=== PATIENT | female | born 1990 | race Caucasian/White ===

== ENCOUNTER 2016-10-25 02:07 | Emergency (ER) | payer SELFPAY ==
[~2016-10-25] VITALS: Ht 167.6 cm; Wt 108.1 kg
[2016-10-25 03:25] LABS: BASOPHIL % 0.4 % (0-2); PLATELET COUNT 256 x10^3mcL (130-400); RED CELL DISTRIBUTION WIDTH 13.4 % (11.5-14.5)
[2016-10-25 03:36] LABS: CALCIUM 8.6 mg/dL (8.5-10.1); CHLORIDE SERUM 105 mmol/L (98-107); GFR1 > 60 mL/min; GLUCOSE SERUM 97 mg/dL (74-106); POTASSIUM SERUM 4.2 mmol/L (3.5-5.1); SODIUM SERUM 142 mmol/L (136-145)
[2016-10-25 03:41] LABS: ALBUMIN 3.5 g/dL (3.4-5.0); ALKALINE PHOSPHATASE 75 U/L (46-116); ALT/SGPT 22 U/L (14-59); AST/SGOT 14 U/L (15-37); BILIRUBIN TOTAL 0.23 mg/dL (0.20-1.00); LIPASE 114 IU/L (73-393); TOTAL PROTEIN, SERUM 7.6 g/dL (6.4-8.2)
[2016-10-25 04:08] VITALS: BP 125/65
== END 2016-10-25 04:08 | disposition home or self-care (01) ==
LOC: ED 02:07
PROVIDERS: Emergency Medicine
DX: O26.891 Other specified pregnancy related conditions, first trimester (principal); N89.8 Other specified noninflammatory disorders of vagina; O99.211 Obesity complicating pregnancy, first trimester; J45.909 Unspecified asthma, uncomplicated; Z79.899 Other long term (current) drug therapy; Z3A.01 Less than 8 weeks gestation of pregnancy
CPT/HCPCS: 36415; J1885

== ENCOUNTER 2016-12-18 09:09 | Emergency (ER) | payer MEDICAID ==
[2016-12-18 10:13] LABS: CALCIUM 8.7 mg/dL (8.5-10.1); CARBON DIOXIDE 28.3 mmol/L (21-32); CHLORIDE SERUM 105 mmol/L (98-107); CREATININE SERUM 0.7 mg/dL (0.6-1.0); GFR1 > 60 mL/min; GLUCOSE SERUM 101 mg/dL (74-106); POTASSIUM SERUM 4.2 mmol/L (3.5-5.1); SODIUM SERUM 140 mmol/L (136-145)
[2016-12-18 10:18] LABS: ALBUMIN 3.8 g/dL (3.4-5.0); ALKALINE PHOSPHATASE 75 U/L (46-116); ALT/SGPT 24 U/L (14-59); AST/SGOT 15 U/L (15-37); LIPASE 294 IU/L (73-393); TOTAL PROTEIN, SERUM 7.9 g/dL (6.4-8.2)
[2016-12-18 10:36] LABS: BASOPHIL % 0.4 % (0-2); PLATELET COUNT 247 x10^3mcL (130-400); RED CELL DISTRIBUTION WIDTH 13.6 % (11.5-14.5)
[2016-12-18 13:12] VITALS: BP 112/71
== END 2016-12-18 13:12 | disposition home or self-care (01) ==
LOC: ED 09:09
PROVIDERS: Emergency Medicine
DX: R10.11 Right upper quadrant pain (principal); R03.0 Elevated blood-pressure reading, without diagnosis of hypertension; Z90.49 Acquired absence of other specified parts of digestive tract; Z88.5 Allergy status to narcotic agent
CPT/HCPCS: J1885; J2405; J3010; J7030; Q0162

== ENCOUNTER 2017-12-07 15:44 | Emergency (ER) | payer SELFPAY ==
[~2017-12-07] VITALS: Ht 165.1 cm; Wt 98.0 kg
[2017-12-07 15:55] VITALS: Ht 165.1 cm; Wt 98.0 kg
[2017-12-07 18:04] VITALS: BP 133/84
== END 2017-12-07 18:04 | disposition home or self-care (01) ==
LOC: ED 15:44
DX: S30.0XXA Contusion of lower back and pelvis, initial encounter (principal); M25.512 Pain in left shoulder; V98.8XXA Other specified transport accidents, initial encounter; Y93.I9 Activity, other involving external motion; Y92.89 Other specified places as the place of occurrence of the external cause; Y99.8 Other external cause status; Z88.5 Allergy status to narcotic agent; Z90.89 Acquired absence of other organs
CPT/HCPCS: J7030

== ENCOUNTER 2018-01-06 22:22 | Emergency (ER) | payer SELFPAY ==
[2018-01-06 23:17] LABS: CALCIUM 8.9 mg/dL (8.5-10.1); CARBON DIOXIDE 25.8 mmol/L (21-32); CHLORIDE SERUM 103 mmol/L (98-107); CREATININE SERUM 0.9 mg/dL (0.6-1.0); GFR1 > 60 mL/min; GLUCOSE SERUM 96 mg/dL (74-106); POTASSIUM SERUM 3.7 mmol/L (3.5-5.1); SODIUM SERUM 136 mmol/L (136-145)
[2018-01-06 23:22] LABS: ALBUMIN 3.6 g/dL (3.4-5.0); ALKALINE PHOSPHATASE 66 U/L (46-116); ALT/SGPT 26 U/L (14-59); AST/SGOT 20 U/L (15-37); BILIRUBIN TOTAL 0.84 mg/dL (0.20-1.00); LIPASE 165 IU/L (73-393); TOTAL PROTEIN, SERUM 7.7 g/dL (6.4-8.2)
[2018-01-06 23:45] LABS: BASOPHIL % 0.5 % (0-2); PLATELET COUNT 222 x10^3mcL (130-400); RED CELL DISTRIBUTION WIDTH 13.5 % (11.5-14.5)
[2018-01-07 00:35] VITALS: BP 124/70
== END 2018-01-07 00:35 | disposition home or self-care (01) ==
LOC: ED 22:22
PROVIDERS: Emergency Medicine
DX: K29.50 Unspecified chronic gastritis without bleeding (principal); Z90.49 Acquired absence of other specified parts of digestive tract
CPT/HCPCS: 36415; Q0162

== ENCOUNTER 2018-02-06 19:58 | Emergency (ER) | payer SELFPAY ==
[~2018-02-06] VITALS: Ht 162.6 cm; Wt 93.9 kg
[2018-02-06 20:04] VITALS: Ht 162.6 cm; Wt 93.9 kg
[2018-02-06 20:56] LABS: BASOPHIL % 0.5 % (0-2); PLATELET COUNT 284 x10^3mcL (130-400); RED CELL DISTRIBUTION WIDTH 13.3 % (11.5-14.5)
[2018-02-06 21:03] LABS: CALCIUM 8.3 mg/dL (8.5-10.1); CARBON DIOXIDE 26.4 mmol/L (21-32); CHLORIDE SERUM 107 mmol/L (98-107); CREATININE SERUM 0.7 mg/dL (0.6-1.0); GFR1 > 60 mL/min; GLUCOSE SERUM 89 mg/dL (74-106); SODIUM SERUM 141 mmol/L (136-145)
[2018-02-06 21:07] LABS: ALBUMIN 3.7 g/dL (3.4-5.0); ALKALINE PHOSPHATASE 82 U/L (46-116); ALT/SGPT 30 U/L (14-59); AST/SGOT 33 U/L (15-37); BILIRUBIN TOTAL 0.59 mg/dL (0.20-1.00)
[2018-02-06 21:41] LABS: AMPHETAMINE QUAL UR POSITIVE (See below)
[2018-02-06 22:26] VITALS: BP 112/69
== END 2018-02-06 22:26 | disposition home or self-care (01) ==
LOC: ED 19:58
PROVIDERS: Emergency Medicine
DX: F41.9 Anxiety disorder, unspecified (principal); F19.10 Other psychoactive substance abuse, uncomplicated; Z90.49 Acquired absence of other specified parts of digestive tract; Z98.890 Other specified postprocedural states; Z88.5 Allergy status to narcotic agent
CPT/HCPCS: 83880; G0480; J2060; J7030

== ENCOUNTER 2018-03-29 20:01 | Emergency (ER) | payer SELFPAY ==
[~2018-03-29] VITALS: Ht 172.7 cm; Wt 99.3 kg
[2018-03-29 20:05] VITALS: Ht 172.7 cm; Wt 99.3 kg
[2018-03-29 21:46] VITALS: BP 127/79
== END 2018-03-29 21:46 | disposition home or self-care (01) ==
LOC: ED 20:01
DX: J02.9 Acute pharyngitis, unspecified (principal); Z98.890 Other specified postprocedural states; Z90.89 Acquired absence of other organs; Z88.5 Allergy status to narcotic agent
CPT/HCPCS: J1100

== ENCOUNTER 2018-05-05 17:21 | Emergency (ER) | payer SELFPAY ==
[~2018-05-05] VITALS: Ht 165.1 cm; Wt 97.5 kg
[2018-05-05 17:22] VITALS: BP 125/58; Ht 165.1 cm; Wt 97.5 kg
== END 2018-05-05 18:29 | disposition home or self-care (01) ==
LOC: ED 17:21
DX: S80.212A Abrasion, left knee, initial encounter (principal); S09.8XXA Other specified injuries of head, initial encounter; Z90.49 Acquired absence of other specified parts of digestive tract; Z98.890 Other specified postprocedural states; Z88.5 Allergy status to narcotic agent; W01.0XXA Fall on same level from slipping, tripping and stumbling without subsequent striking against object, initial encounter; Y93.01 Activity, walking, marching and hiking; Y92.89 Other specified places as the place of occurrence of the external cause; Y99.8 Other external cause status

== ENCOUNTER 2018-05-25 13:22 | Emergency (ER) | payer SELFPAY ==
[~2018-05-25] VITALS: Ht 165.1 cm; Wt 99.8 kg
[2018-05-25 14:07] VITALS: Ht 165.1 cm; Wt 99.8 kg
[2018-05-25 14:44] LABS: BASOPHIL % 0.4 % (0-2); PLATELET COUNT 242 x10^3mcL (130-400); RED CELL DISTRIBUTION WIDTH 13.1 % (11.5-14.5)
[2018-05-25 14:58] LABS: CARBON DIOXIDE 27.5 mmol/L (21-32); CHLORIDE SERUM 104 mmol/L (98-107); CREATININE SERUM 0.9 mg/dL (0.6-1.0); GFR1 > 60 mL/min; GLUCOSE SERUM 89 mg/dL (74-106); POTASSIUM SERUM 4.3 mmol/L (3.5-5.1); SODIUM SERUM 139 mmol/L (136-145)
[2018-05-25 15:02] LABS: ALBUMIN 3.4 g/dL (3.4-5.0); ALKALINE PHOSPHATASE 79 U/L (46-116); ALT/SGPT 21 U/L (14-59); AST/SGOT 19 U/L (15-37); BILIRUBIN TOTAL 0.3 mg/dL (0.20-1.00); TOTAL PROTEIN, SERUM 7.6 g/dL (6.4-8.2)
[2018-05-25 17:54] VITALS: BP 116/60
== END 2018-05-25 17:54 | disposition home or self-care (01) ==
LOC: ED 13:22
PROVIDERS: Emergency Medicine
DX: S43.401A Unspecified sprain of right shoulder joint, initial encounter (principal); S83.92XA Sprain of unspecified site of left knee, initial encounter; R07.89 Other chest pain; Z90.49 Acquired absence of other specified parts of digestive tract; Z98.890 Other specified postprocedural states; Z88.5 Allergy status to narcotic agent; V49.59XA Passenger injured in collision with other motor vehicles in traffic accident, initial encounter; Y93.I9 Activity, other involving external motion; Y92.413 State road as the place of occurrence of the external cause; Y99.8 Other external cause status
CPT/HCPCS: 36415

== ENCOUNTER 2018-06-08 01:27 | Emergency (ER) | payer SELFPAY ==
[~2018-06-08] VITALS: Ht 165.1 cm; Wt 101.6 kg
[2018-06-08 01:36] VITALS: Ht 165.1 cm; Wt 101.6 kg
[2018-06-08 02:39] VITALS: BP 119/75
== END 2018-06-08 02:39 | disposition home or self-care (01) ==
LOC: ED 01:27
DX: L50.0 Allergic urticaria (principal); F17.210 Nicotine dependence, cigarettes, uncomplicated; Z98.890 Other specified postprocedural states; Z90.49 Acquired absence of other specified parts of digestive tract; Z88.5 Allergy status to narcotic agent
CPT/HCPCS: J1200; J7512

== ENCOUNTER 2018-11-26 06:08 | Emergency (ER) | payer SELFPAY ==
[~2018-11-26] VITALS: Ht 167.6 cm; Wt 97.5 kg
[2018-11-26 06:15] VITALS: Ht 167.6 cm; Wt 97.5 kg
[2018-11-26 07:20] LABS: CARBON DIOXIDE 22.7 mmol/L (21-32); CHLORIDE SERUM 106 mmol/L (98-107); CREATININE SERUM 0.7 mg/dL (0.6-1.0); GFR1 > 60 mL/min; GLUCOSE SERUM 89 mg/dL (74-106); POTASSIUM SERUM 3.9 mmol/L (3.5-5.1); SODIUM SERUM 141 mmol/L (136-145)
[2018-11-26 07:26] LABS: ALBUMIN 3.4 g/dL (3.4-5.0); ALKALINE PHOSPHATASE 59 U/L (46-116); ALT/SGPT 21 U/L (14-59); AMYLASE 36 U/L (25-115); AST/SGOT 18 U/L (15-37); BILIRUBIN TOTAL 0.8 mg/dL (0.20-1.00); LIPASE 84 IU/L (73-393); TOTAL PROTEIN, SERUM 6.9 g/dL (6.4-8.2)
[2018-11-26 07:44] LABS: BASOPHIL % 0.3 % (0-2); PLATELET COUNT 209 x10^3mcL (130-400); RED CELL DISTRIBUTION WIDTH 12.6 % (11.5-14.5)
[2018-11-26 07:56] LABS: UA SPECIFIC GRAVITY >=1.030 (1.005-1.035); microscopic required? YES; urine erythrocyte TRACE (NEGATIVE)
[2018-11-26 08:25] LABS: AMPHETAMINE QUAL UR NONE DETECTED (See below)
[2018-11-26 09:04] VITALS: BP 119/75
== END 2018-11-26 09:04 | disposition home or self-care (01) ==
LOC: ED 06:08
PROVIDERS: Emergency Medicine
DX: M51.26 Other intervertebral disc displacement, lumbar region (principal); F12.90 Cannabis use, unspecified, uncomplicated
CPT/HCPCS: J1885

== ENCOUNTER 2019-01-27 14:16 | Emergency (ER) | payer SELFPAY ==
[~2019-01-27] VITALS: Ht 165.1 cm; Wt 98.0 kg
[2019-01-27 14:19] VITALS: Ht 165.1 cm; Wt 98.0 kg
[2019-01-27 16:58] LABS: BASOPHIL % 0.4 % (0-2); PLATELET COUNT 272 x10^3mcL (130-400)
[2019-01-27 17:06] LABS: CALCIUM 8.3 mg/dL (8.5-10.1); CARBON DIOXIDE 27.2 mmol/L (21-32); CHLORIDE SERUM 105 mmol/L (98-107); CREATININE SERUM 0.7 mg/dL (0.6-1.0); GFR1 > 60 mL/min; GLUCOSE SERUM 98 mg/dL (74-106); POTASSIUM SERUM 4.2 mmol/L (3.5-5.1); SODIUM SERUM 140 mmol/L (136-145)
[2019-01-27 17:10] LABS: ALBUMIN 3.6 g/dL (3.4-5.0); ALKALINE PHOSPHATASE 76 U/L (46-116); ALT/SGPT 17 U/L (14-59); AST/SGOT 15 U/L (15-37); BILIRUBIN TOTAL 0.44 mg/dL (0.20-1.00); TOTAL PROTEIN, SERUM 7.6 g/dL (6.4-8.2)
[2019-01-27 19:47] VITALS: BP 102/48
== END 2019-01-27 19:47 | disposition home or self-care (01) ==
LOC: ED 14:16
PROVIDERS: Emergency Medicine
DX: G43.909 Migraine, unspecified, not intractable, without status migrainosus (principal); R10.84 Generalized abdominal pain; R55 Syncope and collapse; Z98.890 Other specified postprocedural states; Z90.49 Acquired absence of other specified parts of digestive tract
CPT/HCPCS: J1200; J2765; J7030

== ENCOUNTER 2019-03-21 11:45 | Emergency (ER) | payer SELFPAY ==
[~2019-03-21] VITALS: Ht 165.1 cm; Wt 96.2 kg
[2019-03-21 11:57] VITALS: Ht 165.1 cm; Wt 96.2 kg
[2019-03-21 12:50] VITALS: BP 121/79
== END 2019-03-21 12:50 | disposition home or self-care (01) ==
LOC: ED 11:45
DX: B02.9 Zoster without complications (principal); Z88.5 Allergy status to narcotic agent; Z98.890 Other specified postprocedural states; Z87.19 Personal history of other diseases of the digestive system

== ENCOUNTER 2019-03-28 22:09 | Emergency (ER) | payer SELFPAY ==
[~2019-03-28] VITALS: Ht 165.1 cm; Wt 99.3 kg
[2019-03-28 22:19] VITALS: Ht 165.1 cm; Wt 99.3 kg
[2019-03-28 23:07] VITALS: BP 135/72
== END 2019-03-28 23:07 | disposition home or self-care (01) ==
LOC: ED 22:09
DX: J03.90 Acute tonsillitis, unspecified (principal); Z88.5 Allergy status to narcotic agent; Z90.49 Acquired absence of other specified parts of digestive tract

== ENCOUNTER 2019-11-30 19:43 | Emergency (ER) | payer SELFPAY ==
[~2019-11-30] VITALS: Ht 170.2 cm; Wt 104.3 kg
[2019-11-30 19:53] VITALS: Ht 170.2 cm; Wt 104.3 kg
[2019-11-30 21:24] LABS: BASOPHIL % 0.3 % (0-2); PLATELET COUNT 259 x10^3mcL (130-400); RED CELL DISTRIBUTION WIDTH 13.7 % (11.5-14.5)
[2019-11-30 21:32] LABS: CALCIUM 8.7 mg/dL (8.5-10.1); CHLORIDE SERUM 104 mmol/L (98-107); CREATININE SERUM 0.7 mg/dL (0.6-1.0); GFR1 > 60 mL/min; GLUCOSE SERUM 89 mg/dL (74-106); POTASSIUM SERUM 3.7 mmol/L (3.5-5.1); SODIUM SERUM 140 mmol/L (136-145)
[2019-11-30 21:36] LABS: ALBUMIN 3.6 g/dL (3.4-5.0); ALKALINE PHOSPHATASE 68 U/L (46-116); ALT/SGPT 32 U/L (14-59); AST/SGOT 22 U/L (15-37); BILIRUBIN TOTAL 0.4 mg/dL (0.20-1.00); MAGNESIUM 2.1 mg/dL (1.8-2.4); TOTAL PROTEIN, SERUM 7.6 g/dL (6.4-8.2)
[2019-11-30 22:45] VITALS: BP 112/67
== END 2019-11-30 23:33 | disposition home or self-care (01) ==
LOC: ED 19:43
PROVIDERS: Emergency Medicine
DX: S09.90XA Unspecified injury of head, initial encounter (principal); R55 Syncope and collapse; E86.0 Dehydration; G43.909 Migraine, unspecified, not intractable, without status migrainosus; R42 Dizziness and giddiness; Z88.5 Allergy status to narcotic agent; Z90.49 Acquired absence of other specified parts of digestive tract; W18.09XA Striking against other object with subsequent fall, initial encounter; Y93.89 Activity, other specified; Y92.89 Other specified places as the place of occurrence of the external cause; Y99.8 Other external cause status
CPT/HCPCS: 82962; Q0092

== ENCOUNTER 2020-04-24 21:52 | Emergency (ER) | payer SELFPAY ==
[~2020-04-24] VITALS: Ht 165.1 cm; Wt 108.4 kg
[2020-04-24 23:26] LABS: BASOPHIL % 0.3 % (0.2-1.3); PLATELET COUNT 256 x10^3mcL (179-408); RED CELL DISTRIBUTION WIDTH 12.8 % (12.3-17.7)
[2020-04-24 23:39] LABS: CALCIUM 8.4 mg/dL (8.5-10.1); CARBON DIOXIDE 27.5 mmol/L (21-32); CHLORIDE SERUM 103 mmol/L (98-107); GFR1 > 60 mL/min; GLUCOSE SERUM 99 mg/dL (74-106); SODIUM SERUM 138 mmol/L (136-145)
[2020-04-24 23:51] LABS: ALBUMIN 3.5 g/dL (3.4-5.0); ALKALINE PHOSPHATASE 77 U/L (46-116); ALT/SGPT 31 U/L (14-59); AST/SGOT 15 U/L (15-37); BILIRUBIN TOTAL 0.22 mg/dL (0.20-1.00); T4(THYROXINE) 7.9 ug/dL (4.7-13.3); TOTAL PROTEIN, SERUM 7.3 g/dL (6.4-8.2)
[2020-04-25 00:53] VITALS: BP 111/78
== END 2020-04-25 00:53 | disposition home or self-care (01) ==
LOC: ED 21:52
PROVIDERS: Emergency Medicine
DX: R00.2 Palpitations (principal); R55 Syncope and collapse; G43.909 Migraine, unspecified, not intractable, without status migrainosus; Z20.828 Contact with and (suspected) exposure to other viral communicable diseases; Z88.5 Allergy status to narcotic agent; Z90.49 Acquired absence of other specified parts of digestive tract